=== PATIENT | female | born 1950 | race Caucasian/White ===

== ENCOUNTER 2021-07-04 11:10 | Emergency (ER) | payer OTHER, BC ==
[2021-07-05 15:08] LABS: SARS-CoV-2 NAA Not Detected (Not Detected)
== END 2021-07-04 13:27 | disposition home or self-care (01) ==
LOC: JVIRT 11:10
DX: J06.9 Acute upper respiratory infection, unspecified (principal); Z20.822 Contact with and (suspected) exposure to COVID-19
CPT/HCPCS: C9803; Q3014-GT; U0003; U0005

== ENCOUNTER 2021-10-04 18:56 | Emergency (ER) | payer OTHER, BC ==
[2021-10-04 19:17] VITALS: BP 153/93; PULSE 83; TEMP 99; BMI 28.3
[2021-10-04] MEDS ORDERED: SODIUM CHLORIDE 1,000 ML IV STA (19:47)
[2021-10-04] MEDS ORDERED: ACETAMINOPHEN 1000 MG/100 ML VIAL IVPB ONE (19:51)
[2021-10-04] MEDS ORDERED: ONDANSETRON 4 MG/2 ML VIAL IVPUSH ONE (19:51)
[2021-10-04] MEDS ORDERED: ACETAMINOPHEN INJECTION 100 ML IVPB ONE (20:08)
[2021-10-04] MEDS ORDERED: ONDANSETRON 4 MG/2 ML VIAL ONE (20:08)
[2021-10-04] MEDS ORDERED: AMPICILLIN NA/SULBACTAM NA 3 GM in SODIUM CHLORIDE 100 ML IVPB ONE (20:26)
[2021-10-04] MEDS ORDERED: AMPICILLIN NA/SULBACTAM NA 3 GM VIAL ONE (20:33)
[2021-10-04] MEDS ORDERED: SULFAMETHOXAZOLE/TRIMETHOPRIM 800MG/160MG D.S. TABLET ONE (21:27)
== END 2021-10-04 21:44 | disposition home or self-care (01) ==
LOC: FER 18:56
PROC: 3E0333Z Introduction of Anti-inflammatory into Peripheral Vein, Percutaneous Approach (ICD-10-PCS; principal; 2021-10-04)
PROC: 3E03329 Introduction of Other Anti-infective into Peripheral Vein, Percutaneous Approach (ICD-10-PCS; 2021-10-04)
PROC: 3E033GC Introduction of Other Therapeutic Substance into Peripheral Vein, Percutaneous Approach (ICD-10-PCS; 2021-10-04)
PROC: 3E0337Z Introduction of Electrolytic and Water Balance Substance into Peripheral Vein, Percutaneous Approach (ICD-10-PCS; 2021-10-04)
DX: K52.9 Noninfective gastroenteritis and colitis, unspecified (principal)
CPT/HCPCS: 99284-25; J0131

== ENCOUNTER 2022-06-13 11:23 | Emergency (ER) | payer OTHER, BC ==
[2022-06-13 11:28] VITALS: BP 131/75; PULSE 78; RESP 18; TEMP 98.7; BMI 28.3
[2022-06-13] MEDS ORDERED: ALBUTEROL SO4 2.5/IPRATROPIUM 0.5 INH SOL 3 ML VIAL.NEB. NEB ONE ×2 (12:10→12:12)
== END 2022-06-13 13:20 | disposition home or self-care (01) ==
LOC: FER 11:23
PROC: 3E0F7GC Introduction of Other Therapeutic Substance into Respiratory Tract, Via Natural or Artificial Opening (ICD-10-PCS; principal; 2022-06-13)
DX: J01.00 Acute maxillary sinusitis, unspecified (principal)
CPT/HCPCS: 0241U-QW; 71046-TC-FY; 99284-25

== ENCOUNTER 2023-02-02 09:10 | Emergency (ER) | payer OTHER, BC ==
[2023-02-02 09:26] VITALS: BP 123/82; PULSE 78; RESP 18; TEMP 97.8; BMI 29.2
== END 2023-02-02 11:30 | disposition home or self-care (01) ==
LOC: FER 09:10 → SUPCPDRO 09:10 → FER 11:30
DX: R05.1 Acute cough (principal); R09.81 Nasal congestion; J02.9 Acute pharyngitis, unspecified; Z20.822 Contact with and (suspected) exposure to COVID-19
CPT/HCPCS: 0241U-QW; 71046-TC-FY; 93005; 99285-25

== ENCOUNTER 2023-02-11 18:23 | Emergency (ER) | payer OTHER, BC ==
[2023-02-11 18:37] VITALS: PULSE 92; RESP 16; TEMP 98; BMI 29.1
[2023-02-11 19:49] VITALS: BP 143/91
== END 2023-02-11 20:12 | disposition home or self-care (01) ==
LOC: FER 18:23
DX: J20.9 Acute bronchitis, unspecified (principal)
CPT/HCPCS: 99282-25